=== PATIENT | male | born 1985 | race Caucasian/White ===

== ENCOUNTER 2024-11-09 15:04 | Emergency (ER) | payer BC, SELFPAY ==
[2024-11-09 15:05] VITALS: BMI 40.2
[2024-11-09 15:06] VITALS: BP 168/109
[2024-11-09 15:16] VITALS: BP 168/97
--- NOTE | 2024-11-09 15:16 | ED.GENMED ---
History of Present Illness
General
Chief Complaint: Chest Pain
Source: patient
Exam Limitations: none
Time Seen by Provider: 11/09/24 15:06
History of Present Illness
History of Present Illness:
See MDM
Past History
Past History
ED Past Medical History: HTN
ED Past Surgical History: None
Social History
Tobacco: Non-smoker
Alcohol: None
Phy Exam
Physical Exam
Physical Exam:
See MDM
Scores
Heart Score for Chest Pain Patients
STEMI patient?: No
History: Slightly or Non-Suspicious
ECG: Normal
Age: </= 45 years
Risk Factors: 1 or 2 Risk Factors
Troponin: </= Normal Limit
Heart Score for Chest Pain Patients: 1
Heart Score Risk: 2.5% MACE over next 6 weeks
Course
Orders/Labs/Results
Orders:
Orders
11/09/24 15:07
EKG [Electrocardiogram (*1)] Urgent
Reason for Study: Chest Pain
11/09/24 15:08
EKG- Treatment ONCE
11/09/24 15:14
Lorazepam [Ativan] 0.5 mg IV NOW STA
CR Chest - 2 Views Urgent
Comment:
Reason For Exam: Left side chest pain
11/09/24 15:18
Crisis Consult Urgent
Reason for Consult: SI
11/09/24 15:26
Complete Blood Count/With Diff Urgent
Comprehensive Metabolic Panel Urgent
Troponin I Urgent
Abnormal Lab Results
11/09/24
15:26
MPV 10.5 H fL
(7.4-10.4)
Glucose 223 H mg/dl
(70-99)
11/09/24 15:26
11/09/24 15:26
Vital Signs
Initial and Last Documented VS:
Initial Vital Signs
Temp Pulse Resp BP Pulse Ox
98.1 F 105 14 168/109 94
11/09/24 15:06 11/09/24 15:06 11/09/24 15:06 11/09/24 15:06 11/09/24 15:06
Last Documented Vital Signs
Temp Pulse Resp BP Pulse Ox
98.1 F 91 23 147/106 95
11/09/24 15:06 11/09/24 17:15 11/09/24 16:17 11/09/24 17:00 11/09/24 17:15
MDM/Problems Addressed
Differential Diagnosis Includes:
HPI and MDM Narrative:
39-year-old female presenting for evaluation of chest discomfort. Patient states this has been an ongoing issue for the past several days. He states he got worse at work earlier today. Started feeling his heart racing so he came in for
evaluation. He does acknowledge that this could be a panic attack. He has seen installment loan collector about ago and had a negative stress test.
On exam, patient does appear anxious. Will give dose of Ativan for therapeutic purposes only. EKG is nonischemic. Will obtain troponin given duration of symptoms and will obtain chest x-ray
Physical exam
General: Well appearing and non-toxic
HEENT: protecting airway
Neck: appears supple
CV: No evidence of cyanosis. Regular rate and rhythm
Resp: No accessory muscle use. Lungs clear
Abd: Non-distended
Extremities: No deformities. No leg edema or unilateral tenderness
Neuro: alert
Psych: Normal affect
Skin: Intact
Problems Addressed including Acute and Chronic Conditions affecting care:
1. Left-sided chest pain
Acuity: acute
Prognosis: stable
Details: Given duration of symptoms, will troponin. Screening EKG negative. Will obtain chest x-ray
2. Hyperglycemia
Acuity: acute
Prognosis: stable
Details: No evidence of DKA
Updates
On reassessment, patient feeling better. Troponin and chest x-ray clear. I discussed my concern for his hyperglycemia. Discussed the concern for diabetes versus prediabetic. Patient feels confident that he can expedite follow-up with his PCP.
Discussed diet control until then and return precautions
Differential Diagnosis (but not limited to): Noncardiac chest pain, pneumothorax, pleurisy
Testing considered: D-dimer but he is neither tachycardic nor hypoxic on my exam. He has no clinical evidence of DVT
Drug therapy (if applicable): OTC meds, please see d/c instruction regarding Rx drugs
Amount and/or Complexity of Data Reviewed
Clinical info obtained from: Patient
External data reviewed: N/A
Labs I independently reviewed (but not limited to): Troponin normal, hyperglycemia
Radiology: X-ray independently reviewed: Chest x-ray clear
Pulse Ox: not hypoxic
EKG independently reviewed: Sinus rhythm, normal axis, no STEMI
Building Certifier: Sinus rhythm
Critical Care: N/A
Risk of Complication:
Social Determinants of health: Good social support
Discussed with other providers: N/A
Escalation of Care includes Admit/Obs: After being observed in the Emergency Department, pt stable for discharge.
Occasional wrong word or 'sound a like' substitutions may have occurred due to the inherent limitations of voice recognition software. Read the chart carefully and recognize, using context, where substitutions have occurred.
*Critical Care Note
Total Time (30-74mins, 75-104mins- exclusive of procedures): Not Applicable
ED Attending Note
-
Portions of this chart may have been created with voice recognition software.� Occasional wrong word or��sound alike� substitutions may have occurred due to the inherent limitations of voice recognition software.
Discharge Plan
Departure
Patient Disposition: Home (Routine Discharge)
Date of Disposition: 11/09/24
Time of Disposition: 17:54
Patient with high blood pressure during this ER visit?: Yes
Discharge Problem:
Chest pain, Hyperglycemia
Instructions: Diabetes and diet, Chest Pain PCP Follow Up
Referrals:
UNKNOWN - PT DOES,NOT KNOW [Family Provider] -
Activity Restrictions/Additional Instructions:
Please return for any worsening symptoms.
You may return at any time if you have further concerns.
Please follow up with your doctor at the first available appointment, preferably this week. Please discuss your symptoms and your elevated blood sugar.
Thank you for choosing [facility].
Interventions
Interventions:
*Risk Screen - Suicide Last Done: 11/09/24 15:06
*General Assessment Last Done: 11/09/24 15:06
*Neglect/Abuse Screening Last Done: 11/09/24 15:06
*ED COVID-19 Vaccine History Last Done: 11/09/24 15:06
ED- Cardiac Assessment Last Done: 11/09/24 15:27
Discharge Date and Time
Print Language: ZAMBIAN
[2024-11-09 15:37] LABS: % Basophils 0.5 % (0-2); % Eosinophils 2.2 % (0-6); % Immature Granulocytes 0.5 % (0-0.5); % Lymphocytes 21.9 % (20.5-51.1); % Monocytes 4.8 % (1.7-9.3); % Neutrophils 70.1 % (42.2-75.2); Absolute Eosinophils 0.1 10^3/uL (0-0.7); Absolute Lymphocytes 1.4 10^3/uL (1.2-3.4); Absolute Monocytes 0.3 10^3/uL (0.1-0.6); Absolute Neutrophils 4.6 10^3/uL (1.4-6.5); Hematocrit 41.2 % (39.0-52.0); Hemoglobin 14.6 g/dL (13.0-18.0); Mean Corp Hgb Conc. 35.4 g/dL (33.0-37.0); Mean Corpuscular Hgb 29.8 pg (27.0-31.0); Mean Corpuscular Volume 84.1 fL (80.0-94.0); Mean Platelet Volume 10.5 fL (7.4-10.4); Nucleated Red Blood Cells % 0 % (-); Platelet Count 246 10^3/uL (130-400); Red Cell Dist. Width 13.2 % (11.5-14.5); White Blood Cell Count 6.5 10^3/uL (4.8-10.8)
[2024-11-09] MEDS: ATIVAN 0.5 MG IV (15:45)
[2024-11-09 15:49] LABS: ALT (SGPT) 47 U/L (0-50); AST (SGOT) 26 U/L (17-59); Albumin 4.8 g/dl (3.5-5.0); Alkaline Phosphatase 69 U/L (38-126); Blood Urea Nitrogen 14 mg/dl (9-20); Calcium 9.4 mg/dl (8.4-10.2); Carbon Dioxide 26 mmol/L (22-30); Chloride 98 mmol/L (98-107); Estimated Creatinine Clearance > 125 ml/min; Glucose 223 mg/dl (70-99); Potassium 3.8 mmol/L (3.5-5.1); Sodium 135 mmol/L (135-145); Total Bilirubin 0.6 mg/dl (0.2-1.3); Total Protein 7.4 g/dl (6.3-8.2); eGFR > 60.00
[2024-11-09 16:00] VITALS: BP 155/108
[2024-11-09 16:05] LABS: Troponin I < 0.012 ng/ml
[2024-11-09 16:42] VITALS: BP 152/99
[2024-11-09 17:00] VITALS: BP 147/106
== END 2024-11-09 18:15 | disposition home or self-care (01) ==
LOC: EMR 15:04
PROVIDERS: EMERGENCY PHYSICIAN Student in an Organized Health Care Education/Training Program
DX: R07.89 Other chest pain (principal); R73.9 Hyperglycemia, unspecified; I10 Essential (primary) hypertension
CPT/HCPCS: 96374; 99285; 71046; 80053; 84484; 85025; 93005